=== PATIENT | male | born 1980 | race Caucasian/White ===

== ENCOUNTER 2017-04-24 13:14 | Emergency (ER) | payer OTHER ==
[~2017-04-24] VITALS: Ht 167.6 cm; Wt 66.1 kg
[2017-04-24] MEDS ORDERED: FLEXERIL10 MG PO (16:29)
[2017-04-24] MEDS ORDERED: MOTRIN800 MG PO (16:29)
[2017-04-24 16:45] VITALS: BP 125/76
== END 2017-04-24 16:46 | disposition home or self-care (01) ==
LOC: EME 13:14
DX: S06.0X0A Concussion without loss of consciousness, initial encounter (principal); Y09 Assault by unspecified means; R04.0 Epistaxis; M79.662 Pain in left lower leg; F17.200 Nicotine dependence, unspecified, uncomplicated
CPT/HCPCS: 99281; 99283; J1885

== ENCOUNTER 2017-05-15 10:05 | Emergency (ER) | payer OTHER ==
[~2017-05-15] VITALS: Ht 167.6 cm; Wt 67.4 kg
[~2017-05-15 10:05] MED LIST: FLEXERIL10 MG PO; MOTRIN800 MG PO
[2017-05-15 10:09] VITALS: BP 123/84
[2017-05-15] MEDS ORDERED: FLEXERIL10 MG PO (11:36)
[2017-05-15] MEDS ORDERED: PERCOCET 5/31 TABLET PO (11:36)
== END 2017-05-15 12:30 | disposition home or self-care (01) ==
LOC: EME 10:05
DX: S20.211A Contusion of right front wall of thorax, initial encounter (principal); W03.XXXA Other fall on same level due to collision with another person, initial encounter; Z88.0 Allergy status to penicillin
CPT/HCPCS: 71020; 99281; 99284